=== PATIENT | female | born 1985 | race Caucasian/White ===

== ENCOUNTER 2018-09-16 06:45 | Emergency (ER) | payer OTHER ==
[2018-09-16] MEDS ORDERED: KETOROLAC TROMETHAMINE 60 MG/2 ML SDV IM ONE (07:40)
[2018-09-16] MEDS ORDERED: DIAZEPAM INJ 10 MG/2 ML DISP.SYRIN IM ONE (07:41)
[2018-09-16] MEDS ORDERED: LIDOCAINE 5% (700 MG) TRANSDERMAL ADH..PATCH TP ONE (07:41)
--- NOTE | 2018-09-16 07:49 | ER Document Report ---
ED Neck/Back Problem - General Chief Complaint: Back Pain Stated Complaint: BACK PAIN Time Seen by Provider: 09/16/18 07:31 Mode of Arrival: Ambulatory Information source: Patient Notes: Patient is an otherwise healthy 33-year-old female who presents with chief complaint of thoracic back pain that radiates to her left arm. She reports history of similar about 10 years ago in which she was diagnosed with a nerve impingement. She states that her symptoms started yesterday, she has pain over the left thoracic area near the left scapula with numbness and tingling into her left first second and third digits. She reports normal motor and strength to these areas. She has not taken any medications today for this pain. She denies any cervical or lumbar pain, denies any vertebral tenderness. She has had no episodes of bowel incontinence and reports she is able to urinate without difficulty. TRAVEL OUTSIDE OF THE [place] IN LAST 30 DAYS: No - Related Data Allergies/Adverse Reactions: No Known Allergies Allergy (Verified 09/16/18 07:58) Past Medical History - General Information source: Patient - Social History Smoking Status: Never Smoker Frequency of alcohol use: None Drug Abuse: None Family History: Reviewed & Not Pertinent - Medical History Medical History: Other - Factor V liden Surgical Hx: Negative - Immunizations Immunizations up to date: Yes Review of Systems - Review of Systems Constitutional: No symptoms reported EENT: No symptoms reported Cardiovascular: No symptoms reported Respiratory: No symptoms reported Gastrointestinal: No symptoms reported Genitourinary: No symptoms reported Female Genitourinary: No symptoms reported Musculoskeletal: No symptoms reported, Back pain Skin: No symptoms reported Hematologic/Lymphatic: No symptoms reported Neurological/Psychological: Numbness - L arm, Tingling - L arm Physical Exam - Vital signs Vitals: Temp Pulse Resp BP Pulse Ox 98.1 F 76 19 123/79 97 09/16/18 06:48 09/16/18 06:48 09/16/18 06:48 09/16/18 06:48 09/16/18 06:48 - Notes Notes: PHYSICAL EXAMINATION: GENERAL: Well-appearing, well-nourished and in no acute distress. HEAD: Atraumatic, normocephalic. EYES: Pupils equal round and reactive to light, extraocular movements intact, conjunctiva are normal. ENT: Nares patent, oropharynx clear without exudates. Moist mucous membranes. NECK: Normal range of motion, supple without lymphadenopathy LUNGS: Breath sounds clear to auscultation bilaterally and equal. No wheezes rales or rhonchi. HEART: Regular rate and rhythm without murmurs ABDOMEN: Soft, nontender, nondistended abdomen. No guarding, no rebound. No masses appreciated. Female : deferred Musculoskeletal: Normal range of motion, no pitting or edema. No cyanosis. Tenderness to palpation along trapezius muscles on the left side, no vertebral tenderness or step-off. NEUROLOGICAL: Cranial nerves grossly intact. Normal speech, normal gait. Normal sensory, motor exams PSYCH: Normal mood, normal affect. SKIN: Warm, Dry, normal turgor, no rashes or lesions noted. Course - Re-evaluation Re-evalutation: No indication for imaging at this time as patient did not have any direct trauma to the area and has normal neurological examination. Patient reports significant improvement of her pain after administration of medications. Patient reports similar episode in the past which she states was diagnosed as a nerve impingement. Patient will have close follow-up with her primary care provider if not improving over the next 3-5 days. - Vital Signs Vital signs: Temp Pulse Resp BP Pulse Ox 98.9 F 69 16 119/78 99 09/16/18 09:38 09/16/18 09:38 09/16/18 09:38 09/16/18 09:38 09/16/18 09:38 Discharge - Discharge Clinical Impression: Thoracic nerve root impingement Condition: Stable Disposition: HOME, SELF-CARE Additional Instructions: Your examination is most consistent with a nerve root impingement. Please take the medications as prescribed. They have the same ones that were given to you in the emergency department which helped your pain. When you get home to [place] in 2 days please proceed to your primary care provider for consideration of an MRI. Prescriptions: Ketorolac Tromethamine [Toradol 10 mg Tablet] 10 mg PO Q6HP PRN #20 tablet PRN Reason: Diazepam [Valium 5 mg Tablet] 5 mg PO QIDP PRN #12 tablet PRN Reason: Lidocaine [Lidoderm 5% (700 mg) Transdermal Patch] 1 patch TP DAILY #30 adh..patch
[2018-09-16 09:39] VITALS: BP 119/78
== END 2018-09-16 09:39 | disposition home or self-care (01) ==
LOC: ER 06:45
DX: G54.3 Thoracic root disorders, not elsewhere classified (principal)
CPT/HCPCS: 99283; 96372; J3360; J1885